=== PATIENT | female | born 1965 | race Two or more races ===

== ENCOUNTER 2024-09-27 14:32 | Emergency (ER) | payer MEDICAID, SELFPAY ==
[2024-09-27 15:04] VITALS: BP 128/73; PULSE 66; RESP 18; TEMP 36.6; O2SAT 96
--- NOTE | 2024-09-27 15:05 | XR_ITS ---
Examination: Duplex scan of the lower extremity, unilateral left Date and time of exam: September 27, 2024 1539 hours INDICATIONS: Left leg swelling and pain beginning 3 days ago Technique: Duplex scan of the extremity veins using B-mode/grayscale imaging and Doppler spectral analysis and color flow Attention is directed to internal echogenicity, compression and augmentation involving these veins, color flow assessment, spectral analysis Findings: Major deep venous structures in the extremity demonstrate normal course and caliber. There is no evidence of deep vein thrombosis. Normal color flow and spectral analysis 20 mm popliteal cyst Impression: Negative for DVT..
--- NOTE | 2024-09-27 15:07 | PD.EDRME ---
Rapid Medical Screening Exam [facility] Arrival date/time: 09/27/24 14:32 59-year-old female with no known medical history presents to the emergency room with a chief complaint of left lower extremity swelling, warmth, tenderness that begins in her foot and goes up into her thigh x 1 week. Patient states she was seen by her primary care provider and was sent to the emergency room to rule out DVT. I have greeted and performed a focused initial assessment of this patient. A comprehensive ED assessment and evaluation of the patient, analysis of all test results, and completion of the medical decision making process will be conducted by additional ED providers. Chief Complaint: Extremity Injury, Lower Vital signs: Vital Signs Temperature 98 F 09/27/24 15:04 Pulse Rate 66 09/27/24 15:04 Respiratory Rate 18 09/27/24 15:04 Blood Pressure 128/73 09/27/24 15:04 Pulse Oximetry (%) 96 09/27/24 15:04 Oxygen Delivery Method Room Air 09/27/24 15:04 Vital signs reviewed by provider: Yes
[2024-09-27 16:02] LABS: Basophils # (Auto) 0.1 Thou/mm3 (0.0-0.2); Basophils % (Auto) 1 % (0-2.5); Eosinophils # (Auto) 0.3 Thou/mm3 (0.0-0.5); Eosinophils % (Auto) 3 % (0-10); Hematocrit 41.3 % (36.0-46.0); Hemoglobin 13.5 g/dL (12.0-16.0); Immature Granulocytes % (Auto) 0 % (0-0); Immature Granulocytes Auto 0.03 Thou/mm3 (0.00-0.00); Lymphocytes # (Auto) 3.8 Thou/mm3 (1.0-4.8); Lymphocytes % (Auto) 41 % (10-50); Mean Corpuscular HGB Conc 32.7 g/dl (31.0-37.0); Mean Corpuscular Hemoglobin 27.7 pg (25.0-35.0); Mean Corpuscular Volume 85 fL (80-100); Monocytes # (Auto) 0.6 Thou/mm3 (0.0-0.8); Monocytes % (Auto) 6 % (0-12); Neutrophils # (Auto) 4.5 Thou/mm3 (1.8-7.7); Neutrophils % (Auto) 48 % (37-80); Nucleated Red Blood Cell % 0 /100 WBC (0); Platelet Count 262 Thou/mm3 (140-440); RDW Standard Deviation 44.9 fL (36.4-46.3); Red Blood Count 4.87 Miln/mm3 (4.00-5.20); White Blood Count 9.4 Thou/mm3 (3.6-11.0)
[2024-09-27 16:13] LABS: Partial Thromboplastin Time 24.8 Seconds (22.0-36.0); Prothrombin Time 10.9 Seconds (9.0-12.2)
[2024-09-27 16:20] LABS: Alanine Aminotransferase 11 U/L (10-49); Albumin, Serum 3.9 gm/dL (3.4-4.8); Albumin/Globulin Ratio 1.6 (1.2-2.2); Alkaline Phosphatase 99 U/L (46-116); Anion Gap 5 (7-16); Aspartate Amino Transferase 14 U/L (0-34); BUN/Creatinine Ratio 17 Ratio (12-20); Bilirubin,Total 0.5 mg/dL (0.3-1.2); Blood Urea Nitrogen 12 mg/dL (9-23); Calcium 8.7 mg/dL (8.3-10.6); Calcium (Corrected) 8.8 mg/dL (8.5-10.1); Chloride 111 mMol/L (98-107); Creatinine (Component) 0.7 mg/dL (0.6-1.3); Globulin 2.4 gm/dL (2.3-3.5); Glucose 95 mg/dL (74-106); Osmolality,Calculated 284 (275-295); Potassium 3.9 mMol/L (3.4-5.1); Sodium 143 mMol/L (136-145); Total Protein 6.3 gm/dL (5.7-8.2); eGFR > 60 See Note
[2024-09-27 20:27] VITALS: BP 115/78; PULSE 77; RESP 18; TEMP 36.8; O2SAT 96
--- NOTE | 2024-09-27 20:28 | PD.EDLOWEX ---
Lower Extremity Injury RME/HPI General Chief Complaint: Extremity Injury, Lower Stated Complaint: SWELLING LEFT KNEE Time Seen by Provider: 09/27/24 18:12 Arrival date/time: 09/27/24 14:32 RME / HPI RME / HPI Narrative: 59-year-old female with no known medical history presents to the emergency room with a chief complaint of left lower extremity swelling, warmth, tenderness that begins in her foot and goes up into her thigh x 1 week. Patient states she was seen by her primary care provider and was sent to the emergency room to rule out DVT. Patient denies any fever denies any other complaints no medication was taken prior to arrival. Patient also denies any trauma. Related Data Previous Rx's ?Medication ?Instructions ?Recorded Cyclobenzaprine * (FLEXERIL *) 10 mg PO Q8HR PRN PAIN #15 tabs 06/01/17 meloxicam 7.5 mg tablet 7.5 mg PO HS #30 tabs 06/01/17 azithromycin 250 mg tablet See Rx Instructions PO .COMPLEX #6 07/17/19 tabs hydrocodone 5 mg-acetaminophen 325 1 tab PO BID PRN pain #6 tabs 01/23/21 mg tablet ibuprofen 600 mg tablet 600 mg PO Q8H PRN pain #30 tabs 01/23/21 Allergies Allergy/AdvReac Type Severity Reaction Status Date / Time No Known Allergies Allergy Verified 09/27/24 14:35 Review of Systems Review of Systems Narrative Review of Systems: Review of system reviewed and within normal limits except mentioned in HPI ED Exam Narrative Physical exam: VITAL SIGNS: Reviewed. GENERAL APPEARANCE: Alert and interactive, follows commands, no acute distress, HEAD AND FACE: Non-traumatic. ENT: PERRL, pink conjunctivitis, eyelid no trauma, Mucous membrane moist. NECK: Supple, nontender, no nuchal rigidity. CHEST: No tenderness, no crepitus, no paradoxical movement, no retractions. LUNGS: Clear, well ventilated, symmetric, no rales, no wheezing, no ronchi, no stridor, good breath sounds bilaterally. HEART: Regular rate, regular rhythm, no murmur, no gallops. ABDOMEN: Soft, positive bowel sounds, nondistended, no guarding, nontender, no rebound, no masses, RECTAL: Deferred. GENITAL: Deferred. NEUROLOGICAL: Gross motor function intact sensory function intact, Appropriate for age. MUSCULOSKELETAL: low back nontender, full range of motion. EXTREMITIES: Left lower leg +1 swelling. Nontender, full range of motion. SKIN: Color pink, dry, no rash, no lacerations, no abrasions, no contusions. LYMPHATICS: Deferred. Course Quality Measures none Orders Category Date Time Status US venous doppler LE LT Stat Exams 09/27/24 15:05 Completed CBC Stat Lab 09/27/24 15:33 Completed CMP [Comprehensive Metabolic Panel] Stat Lab 09/27/24 15:33 Completed PT [Prothrombin Time with INR] Stat Lab 09/27/24 15:33 Completed PTT [Partial Thromboplastin Time] Stat Lab 09/27/24 15:33 Completed Vital Signs Vital signs: Vital Signs Temperature 98 F 09/27/24 15:04 Pulse Rate 66 09/27/24 15:04 Respiratory Rate 18 09/27/24 15:04 Blood Pressure 128/73 09/27/24 15:04 Pulse Oximetry (%) 96 09/27/24 15:04 Oxygen Delivery Method Room Air 09/27/24 15:04 Extremity Injury, Lower MDM Narrative MDM Narrative:: 59-year-old female with no known medical history presents to the emergency room with a chief complaint of left lower extremity swelling, warmth, tenderness that begins in her foot and goes up into her thigh x 1 week. Patient states she was seen by her primary care provider and was sent to the emergency room to rule out DVT. Patient denies any fever denies any other complaints no medication was taken prior to arrival. Patient also denies any trauma. Patient's workup today UNREMARKABLE. Ultrasound negative for DVT. Results discussed with patient Patient data External records reviewed:: None Clinical information provided by:: patient Social determinants that could affect healthcare access:: none Patient has the following chronic illnesses:: None How is presenting disease/condition affected by chronic disease/condition?: exacerbated by Evaluation data The following diagnostics were reviewed and interpreted by me:: lab results and radiology exam(s) Lab and/or radiology exams considered but not ordered:: None Interpretation Summary: See results MDM Medications / Prescriptions Medications or Prescriptions considered but not ordered:: None Medication administrations:: None Consultations Consultation(s) initiated? (list below): No Diagnosis Extremity Injury, Lower Differential Diagnosis: ankle sprain and strain and other (DVT, leg swelling) Most likely diagnosis given after review of the tests above:: leg swelling Admission Indicated Admission indicated?: not indicated Admission Request Was there a request for admission?: No Disposition Plan Disposition Plan: Discharge Discharge Attestation Discharge Attestation: The patient was given an opportunity to ask questions and understood the discharge instructions. Discharge instructions specifically effects, indications for sooner follow up or return to the emergency department, and the expected course of current diagnosis. Patient condition: Stable Discharge Plan Plan Patient Disposition: HOME (Self Care) Disposition Comment: Stable Prescriptions/Referrals Prescriptions/Med Rec: No Action azithromycin 250 mg tablet See Rx Instructions PO .COMPLEX Qty: 6 0RF Dose Instruction: take 500 mg today (day 1), then 250 mg for 4 days (days 2-5) PO Rx Instructions: take 500 mg today (day 1), then 250 mg for 4 days (days 2-5) PO meloxicam 7.5 MG tablet 7.5 mg PO HS Qty: 30 0RF Cyclobenzaprine * (FLEXERIL *) 10 MG tablet 10 mg PO Q8HR PRN (Reason: PAIN) Qty: 15 0RF hydrocodone-acetaminophen 5-325 mg tablet 1 tab PO BID MDD 10 PRN (Reason: pain) Qty: 6 0RF ibuprofen 600 mg tablet 600 mg PO Q8H PRN (Reason: pain) Qty: 30 0RF Referrals: No Primary/Family,Physician [Primary Care Provider] - In 1 week Problem List Clinical Impression: Leg swelling Patient/Caregiver Discharge Instructions Discharge Activity: activity as tolerated Education Materials: ED Leg Swelling in a Single Leg Additional Instructions: Thank you for the opportunity for serving you today. You are stable for discharged . You are advised to: Follow-up with your PCP in 1 to 2 days Return to ED for worsening of symptoms Elevate legs as needed Print Language: Romanian Stand Alone Forms: Mary Award Info., Patient Portal Info Letter PA/EDSON Supervising Physician PA/EDSON Supervising Physician: MD Nargis
== END 2024-09-27 21:22 | disposition home or self-care (01) ==
PROVIDERS: Nurse Practitioner Family; Emergency Provider Emergency Medicine
DX: M79.89 Other specified soft tissue disorders (principal)
CPT/HCPCS: 36415; 80053; 85025; 85610; 85730; 93971; 99284

== ENCOUNTER 2024-10-03 21:50 | Emergency (ER) | payer MEDICAID, SELFPAY ==
[2024-10-03 22:22] VITALS: BP 124/73; PULSE 88; RESP 18; TEMP 36.6; O2SAT 99
--- NOTE | 2024-10-03 22:36 | XR_ITS ---
Examination: Duplex scan of the lower extremity, unilateral right Date and time of exam: October 03, 2024 1139 hrs. Indications: Right leg pain beginning 5 days ago Technique: Duplex scan of the extremity veins using B-mode/grayscale imaging and Doppler spectral analysis and color flow Attention is directed to internal echogenicity, compression and augmentation involving these veins, color flow assessment, spectral analysis Findings: Major deep venous structures in the extremity demonstrate normal course and caliber. There is no evidence of deep vein thrombosis. Normal color flow and spectral analysis 5.2 cm right popliteal cyst seen with internal derangement of the knee Impression: Negative for DVT..
--- NOTE | 2024-10-03 22:50 | PD.EDEXREM ---
ED Extremity Problem RME/HPI General Chief complaint: Extremity Problem,Nontraumatic Stated complaint: RIGHT LEG SWOLLEN AND WITH PAIN Time Seen by Provider: 10/03/24 21:56 Arrival date/time: 10/03/24 21:50 59-year-old female presents to the ED with a complaint of right leg swelling and pain. Mode of arrival: wheelchair Limitations: no limitations Related Data Previous Rx's ?Medication ?Instructions ?Recorded Cyclobenzaprine * (FLEXERIL *) 10 mg PO Q8HR PRN PAIN #15 tabs 06/01/17 meloxicam 7.5 mg tablet 7.5 mg PO HS #30 tabs 06/01/17 azithromycin 250 mg tablet See Rx Instructions PO .COMPLEX #6 07/17/19 tabs hydrocodone 5 mg-acetaminophen 325 1 tab PO BID PRN pain #6 tabs 01/23/21 mg tablet ibuprofen 600 mg tablet 600 mg PO Q8H PRN pain #30 tabs 01/23/21 Allergies Allergy/AdvReac Type Severity Reaction Status Date / Time No Known Allergies Allergy Verified 10/03/24 21:52 Review of Systems Review of Systems Systems Reviewed: All systems reviewed, normal except as documented Past Medical History Past Medical History CARDIAC: Negative Congestive Heart Failure RESPIRATORY: Negative Chronic Obstructive Pulmonary Disease (COPD) GENITOURINARY: Negative Renal Disease ENDOCRINE: Negative Diabetes Mellitus Type 1 or Diabetes Mellitus Type 2 Social History SMOKING STATUS: Light (< 1 pack/day) ED Exam General Limitations: Present no limitations Course Orders Category Date Time Status crissy wrap [Splint / Immobilizer] STAT Care 10/04/24 01:01 Completed US venous duplex LE RT Stat Exams 10/03/24 22:36 Completed Vital Signs Vital signs: Vital Signs Temperature 98 F 10/03/24 22:22 Pulse Rate 88 10/03/24 22:22 Respiratory Rate 18 10/03/24 22:22 Blood Pressure 124/73 10/03/24 22:22 Pulse Oximetry (%) 99 10/03/24 22:22 Oxygen Delivery Method Room Air 10/03/24 22:22 Discharge Plan Plan Patient Disposition: HOME (Self Care) Discharge Disposition comment: Stable Prescriptions/Referrals Prescriptions/Med Rec: No Action azithromycin 250 mg tablet See Rx Instructions PO .COMPLEX Qty: 6 0RF Dose Instruction: take 500 mg today (day 1), then 250 mg for 4 days (days 2-5) PO Rx Instructions: take 500 mg today (day 1), then 250 mg for 4 days (days 2-5) PO meloxicam 7.5 MG tablet 7.5 mg PO HS Qty: 30 0RF Cyclobenzaprine * (FLEXERIL *) 10 MG tablet 10 mg PO Q8HR PRN (Reason: PAIN) Qty: 15 0RF hydrocodone-acetaminophen 5-325 mg tablet 1 tab PO BID MDD 10 PRN (Reason: pain) Qty: 6 0RF ibuprofen 600 mg tablet 600 mg PO Q8H PRN (Reason: pain) Qty: 30 0RF Problem List Clinical Impression: Parker's cyst of knee Patient/Caregiver Discharge Instructions Education Materials: Cyst Popliteal Additional Instructions: Follow-up with your primary care physician in 24 to 48 hours. Return to the ED for any new or worsening symptoms. Print Language: Pakistani Stand Alone Forms: Mary Award Info., Patient Portal Info Letter PA/GROUND WATER PUMP INSTALLER Supervising Physician PA/GROUND WATER PUMP INSTALLER Supervising Physician: Dr. Elizalde
== END 2024-10-04 01:16 | disposition home or self-care (01) ==
PROVIDERS: Emergency Provider Emergency Medicine
DX: M71.21 Synovial cyst of popliteal space [Baker], right knee (principal)
CPT/HCPCS: 93971; 99284

== ENCOUNTER 2024-11-22 14:35 | Outpatient (RCR) | payer MEDICAID, SELFPAY ==
--- NOTE | 2024-11-22 15:04 | PTNOTE_ITS ---
PT OP Initial Eval Patient Information Outpatient Physical Therapy Treatment Date: 11/22/24 Visit Reasons: Unspecified knee pain Medical Diagnosis: M25.569 Start of Care: 11/22/24 Date of Onset: 02/04/24 Smoking Status Smoking Status: Light (< 1 pack/day) Cessation Counseling Provided: MEDARDO was advised that quitting smoking is the single most important factor to protect the health of themselves and their family. Discussed the benefits of quitting smoking with patient. Encouraged patient to quit smoking and provided Cessation assistance materials and resources. Tobacco Use: Cigarette Years smoked: 26 Are you interested in quitting?: No Would you like additional Smoking Cessation Counseling?: No Initial Assessment Subjective: Pt is 59 yr old female who reports posterior knee pain R>L which limits walking tolerance and distance. Increased pain when it pops out which happens with prolonged walking and limits bending the knee. It's not hurting now because it's not popped out. She is icing it to control the pain and sits in the W/C when the pain is bad. PMH: smoker, allergies Pt goal: not sure because exercise aggravates the pain Objective: Knee ArOM: Flexion: R: 90 deg, L: 80 deg Extension: full Strength: Quads: 4/5 HS: 3+/5 SLR: 80 deg Assessment: Pt presentation consistent with referring Dx of B Parker's cysts. Pt is not likely going to meet therapy goals and has poor rehab potential since pain is aggravated by exercise and movement. Therapy interventions will likely cause more B knee pain and limit progress with goals. PT recommends orthopedic consultation to see if she is a surgical candidate. Short Term and Penitentiary Goals Eval and D/C Treatment Plan Eval and D/C Certification Dates: 11/22/24 to 11/23/24 Procedure Charges OP PT Eval Mod Complex 30 minutes: Yes
== END 2024-12-11 23:59 | disposition home or self-care (01) ==
LOC: CPTX 14:35
PROVIDERS: PCP Physician Assistant; Referring Provider Physician Assistant; Visit Provider Physician Assistant
DX: M25.562 Pain in left knee (principal); M25.561 Pain in right knee; Z71.6 Tobacco abuse counseling; F17.210 Nicotine dependence, cigarettes, uncomplicated
CPT/HCPCS: 97162

== ENCOUNTER 2024-12-12 09:45 | Outpatient (AMB) | payer MEDICAID, SELFPAY ==
[2024-12-12 10:13] VITALS: BP 148/89; PULSE 68; RESP 18; TEMP 36.3; O2SAT 97; BMI 25.9
--- NOTE | 2024-12-12 10:13 | PD.ORTHCLVIS ---
Vital signs 12/12/24 10:13 Height 1.52 m Height Method Stated Weight 60.356 kg Weight Measurement Method Standing Scale BMI 25.9 BP 148/89 H Blood Pressure Source Automatic Cuff Blood Pressure Location Right Upper Arm Position Sitting Respiration 18 Pulse 68 Pulse Source Monitor Temp 97.3 F Temp Source Temporal Artery Scan Pulse Oximetry (%) 97 Oxygen Delivery Method Room Air Med/Allergies Allergies & Medications Allergies No Known Allergies Allergy (Verified 12/12/24 10:13) Medication Reconciliation meloxicam 7.5 mg tablet 7.5 mg PO QDAY #45 tabs 12/12/24 [Rx] Exam Exam Patient is in no acute distress and is cooperative with the examination today. Breathing is nonlabored. In no respiratory distress. Bilateral extremities were evaluated and demonstrates sensation intact to light touch. Palpable pedal pulses are present. No significant edema is present. Bilateral hips were examined. The patient has no pain with log roll of the hips. Internal rotation to 30 degrees and external rotation to 30 degrees is painless. Negative FADIR. The left knee was examined. The left knee is in varus alignment. Range of motion from 0-115 degrees. Knee is stable to varus and valgus as well as AP translation with <5mm. Patient has a negative McMurrays. There is no pain with patellofemoral compression and no crepitus noted. The knee is tender to palpation medially. A popliteal cyst is present The right knee was also examined. The right knee is in varus alignment. Range of motion from 0-120 degrees. Knee is stable to varus and valgus as well as AP translation with <5mm. Patient has a negative McMurrays. There is no pain with patellofemoral compression and no crepitus noted. The knee is tender to palpation medially. Assessment and Plan Problem List (1) Degenerative arthritis of knee, bilateral: Status: Acute Plan: Patient is a pleasant 59-year-old female with bilateral knee pain and bilateral knee arthritis. We discussed different treatment options. We will start with getting x-rays. We will get authorization for injections at the next visit. Office Procedures GNS Level of Care Nursing/Assessment Patient Status: Established Patient Nursing Assessment/Reassesment: Medication Reconciliation, Update PMH in EMR and Vital Signs Coordination of Care: Complex Care and Chronic Disease 1-5, Education Complex Pt/Fam, Consent,records obtained, informed consent, Results/Orders obtained and Staff clarify orders Established Patient Charge Established Patient Point Assignment: 95 Established Patient Point Charge: EP Level 3 (80-115) MA Intake Visit Data Collection New Patient or Established: Established Patient (seen at [facility] within 3 years) Reason for Visit:: CYST ON THE BACK OF KNEE Seen by Clinical Staff ONLY (RN/MA): No Verbal consent obtained for Telemed visit?: No Marketing Analytics Lead Required: No PCP or OBGYN visit in last 3 months: Yes Hx Now: No Do You Feel Safe at Home: Yes Authorities Contacted: N/A Questionairres Past Medical History Past Medical History Have you ever been diagnosed with any of the following: Cardiology Problems Congestive Heart Failure: No Respiratory Problems Chronic Obstructive Pulmonary Disease (COPD): No Smoking: Yes (MARIJUANA) Smoking Cessation Counseling: No Genital/Urinary Problems Renal Disease: No Endocrine Problems Diabetes Mellitus Type 1: No Diabetes Mellitus Type 2: No Subjective Visit Visit for: new patient and knee Immunization / Flu Flu Vaccine in the Last 12 Months: No Flu Vaccine Exclusion Criteria: No Exclusion Criteria History of Present Illness Chief complaint: CYST ON THE BACK OF THE KNEE Date of injury / onset of symptoms: JOE Mariposa is a pleasant 59-year-old female with bilateral knee pain. She has bilateral knee arthritis and reports that the pain really increased approximately 4 months ago. She has cysts in both knees based on Doppler ultrasound. She has no x-rays today Personal History Occupation: RETIRED Hobbies: WALKING Red flag PMH: smoker Pain Pain level (0-10): 4 Pain duration: WITH ACTIVITY Pain location: inside (medial), outside (lateral), anterior and posterior Pain quality: sharp, dull and aching Pain timing: increases with activity Associated signs & symptoms: none Ambulatory data Ambulatory device: none Treatments Improvement with previous injections: No Improvement with PT: No Improvement with NSAIDS: no Review of Systems Review of Systems: All systems negative unless otherwise noted in HPI.
--- NOTE | 2024-12-12 10:19 | XR_ITS ---
Examination: Bilateral knees 2 views Right lateral knee left lateral knee 2 views Bilateral axial knees single view TECHNIQUE: Bilateral AP knees standing single view, bilateral PA knees standing single view flexion Standing right lateral knee left lateral knee 2 views Bilateral axial knees single view Date and time: December 12, 2024 1034 hours INDICATIONS: Posterior bilateral knee pain and bilateral knees cysts beginning September 27, 2024 FINDINGS: Moderate osteopenia Bilateral moderate narrowing medial joint spaces Bilateral mild to moderate narrowing patellofemoral joints No fractures No patellar dislocation IMPRESSION: Bilateral moderate narrowing medial joint spaces Bilateral mild to moderate narrowing patellofemoral joints
== END 2024-12-12 10:21 | disposition home or self-care (01) ==
PROVIDERS: PCP Physician Assistant; Referring Provider Physician Assistant; Supervising Provider Orthopaedic Surgery Adult Reconstructive Orthopaedic Surgery; Visit Provider Orthopaedic Surgery Adult Reconstructive Orthopaedic Surgery
DX: M17.0 Bilateral primary osteoarthritis of knee (principal); M25.562 Pain in left knee; M25.561 Pain in right knee
CPT/HCPCS: 73564; 99213; G0463

== ENCOUNTER 2025-01-04 11:00 | Outpatient (AMB) | payer MEDICAID, SELFPAY ==
[2025-01-04 11:13] VITALS: BP 136/83; PULSE 75; RESP 18; TEMP 36.5; O2SAT 98; BMI 25.5
--- NOTE | 2025-01-04 11:13 | PD.ORTHCLVIS ---
Vital signs 01/04/25 11:13 Height 1.52 m Height Method Measured Weight 59.08 kg Weight Measurement Method Standing Scale BMI 25.5 BP 136/83 H Blood Pressure Source Automatic Cuff Blood Pressure Location Right Upper Arm Position Sitting Respiration 18 Pulse 75 Pulse Source Monitor Temp 97.7 F Temp Source Temporal Artery Scan Pulse Oximetry (%) 98 Oxygen Delivery Method Room Air Med/Allergies Allergies & Medications Allergies No Known Allergies Allergy (Verified 01/04/25 11:14) Medication Reconciliation meloxicam 7.5 mg tablet 7.5 mg PO QDAY #45 tabs 01/04/25 [Rx Confirmed 01/04/25] Exam Exam Patient is in no acute distress and is cooperative with the examination today. Breathing is nonlabored. In no respiratory distress. Bilateral extremities were evaluated and demonstrates sensation intact to light touch. Palpable pedal pulses are present. No significant edema is present. Bilateral hips were examined. The patient has no pain with log roll of the hips. Internal rotation to 30 degrees and external rotation to 30 degrees is painless. Negative FADIR. The left knee was examined. The left knee is in varus alignment. Range of motion from 0-115 degrees. Knee is stable to varus and valgus as well as AP translation with <5mm. Patient has a negative McMurrays. There is no pain with patellofemoral compression and no crepitus noted. The knee is tender to palpation medially. A popliteal cyst is present The right knee was also examined. The right knee is in varus alignment. Range of motion from 0-120 degrees. Knee is stable to varus and valgus as well as AP translation with <5mm. Patient has a negative McMurrays. There is no pain with patellofemoral compression and no crepitus noted. The knee is tender to palpation medially. X-rays demonstrate moderate arthritis of both knees Assessment and Plan Problem List (1) Degenerative arthritis of knee, bilateral: Status: Acute Plan: Patient is a pleasant 59-year-old female with bilateral knee pain and bilateral knee arthritis. We discussed different treatment options. She has moderate arthritis. We recommend conservative treatment including anti-inflammatories. We discussed injections but she would like to hold off on this Office Procedures GNS Level of Care Nursing/Assessment Patient Status: Established Patient Nursing Assessment/Reassesment: Medication Reconciliation, Update PMH in EMR and Vital Signs Coordination of Care: Complex Care and Chronic Disease 1-5, Consent,records obtained, informed consent, Education Simp Pt/Fam, Results/Orders obtained and Staff clarify orders Established Patient Charge Established Patient Point Assignment: 90 Established Patient Point Charge: EP Level 3 (80-115) MA Intake Visit Data Collection New Patient or Established: Established Patient (seen at [facility] within 3 years) Reason for Visit:: XRAY F/U Seen by Clinical Staff ONLY (RN/MA): No Airplane Pilot Chief Required: No PCP or OBGYN visit in last 3 months: Yes Hx Now: No Do You Feel Safe at Home: Yes Authorities Contacted: N/A Questionairres Past Medical History Past Medical History Have you ever been diagnosed with any of the following: Cardiology Problems Congestive Heart Failure: No Respiratory Problems Chronic Obstructive Pulmonary Disease (COPD): No Smoking: Yes (MARIJUANA) Smoking Cessation Counseling: No Genital/Urinary Problems Renal Disease: No Endocrine Problems Diabetes Mellitus Type 1: No Diabetes Mellitus Type 2: No Subjective Visit Visit for: new patient, follow up visit and knee Immunization / Flu Flu Vaccine in the Last 12 Months: No Flu Vaccine Exclusion Criteria: No Exclusion Criteria History of Present Illness Chief complaint: XRAY RESULTS Date of injury / onset of symptoms: JOE Monge is a pleasant 59-year-old female with bilateral knee pain. She has bilateral knee arthritis and reports that the pain really increased approximately 4 months ago. She has cysts in both knees based on Doppler ultrasound. Personal History Occupation: RETIRED Hobbies: WALKING Red flag PMH: smoker BMI Counceling provided: No Pain Pain level (0-10): 6 Pain duration: WITH ACTIVITY Pain location: inside (medial), outside (lateral), anterior and posterior Pain quality: sharp, dull and aching Pain timing: increases with activity Associated signs & symptoms: none Ambulatory data Ambulatory device: none Treatments Improvement with previous injections: No Improvement with PT: No Improvement with NSAIDS: no Review of Systems Review of Systems: All systems negative unless otherwise noted in HPI.
== END 2025-01-04 11:18 | disposition home or self-care (01) ==
LOC: HODSRG 11:00
PROVIDERS: PCP Physician Assistant; Referring Provider Physician Assistant; Supervising Provider Orthopaedic Surgery Adult Reconstructive Orthopaedic Surgery; Visit Provider Orthopaedic Surgery Adult Reconstructive Orthopaedic Surgery
DX: M17.0 Bilateral primary osteoarthritis of knee (principal); M25.562 Pain in left knee; M25.561 Pain in right knee
CPT/HCPCS: 99213; G0463